=== PATIENT | female | born 1985 | race Two or more races ===

== ENCOUNTER → 2025-02-05 | Outpatient (CLI) | payer MEDICAID, SELFPAY ==
--- NOTE | 2025-02-05 11:30 | XR_ITS ---
Examination: CT left shoulder, without contrast. 2-D sagittal reconstructions. 2-D coronal reconstructions. 3-D reconstructions. Date and time of exam:February 05, 2025, 1147 hours INDICATIONS: Palpable lump in the left shoulder axillary region on examination 2020 CTDI: vol (mGy):17.0 DLP: (mGycm):368 Technique: Multiple 1.25 mm axial sections of the left shoulder without intravenous contrast have been obtained. 2-D sagittal and coronal reconstructions have been obtained. 3-D reconstructions have been obtained. Low dose protocols were performed. One or more of the following dose reduction techniques were used; automated exposure control, adjustment of the mA and/or KV according to patient size, use of iterative reconstruction technique. Findings: No pathologic axillary lymphadenopathy Mild osteoarthritis glenohumeral joint No shoulder fracture or dislocation No AC joint separation No supraclavicular mass IMPRESSION: No pathologic axillary lymphadenopathy Mild osteoarthritis glenohumeral joint Recommend ultrasound soft tissue of any palpable abnormality left shoulder
[2025-02-05 11:45] LABS: HCG Qualitative,Urine Negative
== END | disposition home or self-care (01) ==
PROVIDERS: PCP Physician Assistant Medical; Referring Provider Physician Assistant Medical; Visit Provider Physician Assistant Medical
DX: M19.012 Primary osteoarthritis, left shoulder (principal); Z32.00 Encounter for pregnancy test, result unknown
CPT/HCPCS: 73202; 81025; A4649; Q9967